=== PATIENT | female | born 1960 | race Caucasian/White ===

== ENCOUNTER → 2017-03-05 | Day surgery (SDC) | payer OTHER ==
[2017-03-04 13:41] LABS: BASOPHIL 0.6 % (0-2); EOSINOPHIL 1.3 % (0-5); HCT 39.3 % (37.0-47.0); HGB 13.9 g/dl (12.5-16.0); LYMPHOCYTE 29.5 % (15-48); MCH 30.6 pg (25.0-31.0); MCHC 35.4 g/dL (32.0-36.0); MCV 86.6 fL (78.0-100.0); MONOCYTE 5.1 % (0-12); MPV 8.9 fL (6.0-9.5); NEUTROPHIL 63.5 % (41-80); PLT 184 K/uL (150-400); RBC 4.54 M/uL (4.20-5.40); RDW 12.8 % (11.5-14.0); WBC 6.8 K/uL (4.0-10.5)
== END | disposition home or self-care (01) ==
LOC: FAS 03-04 13:06 → FOD 13:18 → FAS 13:23
PROVIDERS: Oral & Maxillofacial Surgery
DX: K02.9 Dental caries, unspecified (principal); M19.90 Unspecified osteoarthritis, unspecified site; Z90.49 Acquired absence of other specified parts of digestive tract
CPT/HCPCS: 36415; 71020; 85025; 93005; J1100; J1170; J1885; J2405; J2704; J3010